=== PATIENT | male | born 1960 | race Caucasian/White ===

== ENCOUNTER → 2017-07-12 | Outpatient (CLI) | payer OTHER ==
[~2017-07-12] MED LIST: BND25X PO; CLR10 PO; CMP10 PO; FLUO20CA35 PO; GINGER; [UNRECOGNIZED DRUG - CODE]; [UNRECOGNIZED DRUG - OTHER]
--- NOTE | 2017-07-12 10:56 | DIAGNOSTIC IMAGING REPORT ---
(TESTICULAR) SCROTUM-CONT CLINICAL HISTORY: 57 years-old Male with EPIDIDYMAL CYST. Left epididymal head cyst follow-up study. No acute symptoms reported. COMPARISON STUDY: Testicular ultrasound 10/05/2016 TECHNIQUE: Real-time, grayscale, and color Doppler sonography of the testes and scrotum is performed. Images are reviewed in the transverse and longitudinal planes. FINDINGS: RIGHT HEMISCROTUM: The right testis measures 4.7 x 2.4 x 2.9 cm and the parenchyma appears unremarkable. No intratesticular mass is seen. Normal-appearing arterial inflow is present within the right testicle. The right epididymal head demonstrates small subcentimeter cysts. No varicocele or hydrocele is identified. LEFT HEMISCROTUM: The left testis measures 5.1 x 2.5 x 3.1 cm and the parenchyma appears unremarkable with the exception of prominence of the rete testes. No intratesticular mass is seen. Normal-appearing arterial inflow is present within the left testicle. Large epididymal head cyst is again seen, 3.0 x 1.9 x 2.5 cm, stable from comparison. No varicocele or hydrocele is identified. IMPRESSION: 1. No testicular mass or torsion. 2. 3 cm left epididymal head cyst redemonstrated, stable from comparison. The above report was generated using voice recognition software. It may contain grammatical, syntax or spelling errors. Electronically signed by: Roberto Silver M.D. 07/12/2017 10:55 AM Dictated Date/Time: 07/12/2017 10:51 AM
== END | disposition home or self-care (01) ==
LOC: C.ULTR 10:11
PROVIDERS: ATTEND Family Medicine
DX: N50.3 Cyst of epididymis (principal)